=== PATIENT | female | born 1980 | race Caucasian/White ===

== ENCOUNTER 2021-02-20 09:41 | Outpatient (CLI) | payer BC | END 2021-02-20 09:42 | disposition home or self-care (01) | LOC: BICMAMMO 09:41 | PROVIDERS: ATTEND Obstetrics & Gynecology | DX: D24.1 Benign neoplasm of right breast (principal); N63.14 Unspecified lump in the right breast, lower inner quadrant; Z98.890 Other specified postprocedural states | CPT/HCPCS: 19083; 77066; 88305; G0279 ==